=== PATIENT | female | born 1960 | race Two or more races ===

== ENCOUNTER → 2020-12-14 | Outpatient (CLI) | payer MEDICARE, MEDICAID, SELFPAY | END | disposition home or self-care (01) | PROVIDERS: PCP Nurse Practitioner Family; Referring Provider Nurse Practitioner Family; Visit Provider Nurse Practitioner Family | DX: I10 Essential (primary) hypertension (principal) | CPT/HCPCS: J3301; J3490 ==

== ENCOUNTER → 2024-04-19 | Outpatient (CLI) | payer MEDICARE, MEDICAID, SELFPAY ==
--- NOTE | 2024-04-19 10:32 | EKG_ITS ---
[facility] Test Date: 2024-04-19 Pat Name: JASON REHMAN Department: Room: - Gender: Female Virtual Assistant: LEEROY : 1960 Requested By: Lay Mckenna Order Number: [id number] Reading MD: Lay Mckenna Measurements Intervals [place] Rate: 68 P: 47 OK: 162 QRS: 39 QRSD: 114 T: -11 QT: 376 QTc: 402 Interpretive Statements SINUS RHYTHM LOW QRS VOLTAGE IN PRECORDIAL LEADS POSSIBLE RIGHT VENTRICULAR CONDUCTION DELAY Compared to ECG 10/22/2021 16:38:38 T-wave abnormality no longer present /[id number]/[id number]
== END | disposition home or self-care (01) ==
PROVIDERS: PCP Internal Medicine; Referring Provider Internal Medicine; Visit Provider Internal Medicine
DX: R00.2 Palpitations (principal)
CPT/HCPCS: 93005

== ENCOUNTER → 2024-05-13 | Outpatient (CLI) | payer MEDICARE, MEDICAID, SELFPAY ==
--- NOTE | 2024-05-13 14:30 | XR_ITS ---
Examination: Screening digital mammography, bilateral Computer aided detection 3-D breast Tomosynthesis, bilateral Date and time of exam: 05/13/2024, 2:23 PM Comparisons: 12/07/2022 Indications: Screening Technique: Nonmagnified MLO, CC views of the breasts to been obtained, reconstructed from 3-D Tomosynthesis images. R2 computer aided detection program utilized for evaluation of suspicious masses and/or abnormal calcifications. 3-D Tomosynthesis images obtained. Technologist: Findings: The breasts are heterogeneously dense, which may obscure small masses. No evidence of abnormal masses or suspicious calcifications. Impression: BI-RADS category 1: Negative findings (within normal) Recommend 1 year follow-up mammogram
== END | disposition home or self-care (01) ==
PROVIDERS: PCP Internal Medicine; Referring Provider Internal Medicine; Visit Provider Internal Medicine
DX: Z12.31 Encounter for screening mammogram for malignant neoplasm of breast (principal); R92.313 Mammographic fatty tissue density, bilateral breasts
CPT/HCPCS: 77063; 77067

== ENCOUNTER → 2024-10-11 | Outpatient (CLI) | payer MEDICARE, MEDICAID, SELFPAY ==
--- NOTE | 2024-10-11 10:30 | XR_ITS ---
Examination: Abdomen sonogram, complete Date and time of exam: October 21, 2024 1049 hours INDICATIONS: Generalized abdominal pain with constipation beginning several years ago. Technique: Multiple real-time grayscale transabdominal sonographic images of the abdomen have been obtained. Findings: Normal gallbladder Normal common bile duct 0.4 cm Pancreas obscured by bowel gas Aorta not enlarged Liver 11.8 cm fatty infiltration Normal hepatopedal portal venous flow Patent IVC Right kidney 9.3 cm cortex 2.2 cm Left kidney 10.7 cm cortex 1.9 cm Moderate renal parenchymal scar formation No hydronephrosis Spleen 7.1 cm IMPRESSION: Normal gallbladder Fatty infiltration throughout the liver Moderate bilateral renal parenchymal scar formation
== END | disposition home or self-care (01) ==
LOC: CDIM 10:29
PROVIDERS: PCP Nurse Practitioner Family; Referring Provider Nurse Practitioner Family; Visit Provider Nurse Practitioner Family
DX: K76.0 Fatty (change of) liver, not elsewhere classified (principal); N28.89 Other specified disorders of kidney and ureter
CPT/HCPCS: 76700